=== PATIENT | female | born 1945 | race Caucasian/White ===

== ENCOUNTER 2025-03-31 13:14 | Emergency (ER) | payer MEDICARE, OTHER ==
[2025-03-31] MEDS ORDERED: Ketorolac Tromethamine 30 MG (1 mL) VIAL ONE (13:46)
== END 2025-03-31 15:23 | disposition home or self-care (01) ==
LOC: MADERS 13:14
DX: S39.012A Strain of muscle, fascia and tendon of lower back, initial encounter (principal); X58.XXXA Exposure to other specified factors, initial encounter
CPT/HCPCS: 74176; 96372; J1885; J3010